=== PATIENT | male | born 1980 | race Caucasian/White ===

== ENCOUNTER 2025-05-28 11:13 | Emergency (ER) | payer BC ==
[2025-05-28 11:26] VITALS: PULSE 67; TEMP 97.4
--- NOTE | 2025-05-28 11:56 | ERPHSYRPT ---
- History of Present Illness Time Seen by Provider: 05/28/25 11:15 Source: patient Patient Subjective Stated Complaint: pt was playing softball yesterday and landed on his right shoulder and his arm was extended and now has swelling and pain Triage Nursing Assessment: Pt brought self to the ER, hyeprtensive, rates pain as 6/10 upon movement of right shoulder, swollen, pulses normal, skin n/w/d, no prior surgeries on the right shoulder/arm, denies any other injuries Physician History: This is a 45-year-old [id number]-rixcvscs male was playing baseball yesterday ran into second base was knocked off onto his right arm elbow causing immediate pain to the right shoulder. He has been trying to wean since last night. Unable to lift his arm passively degrees passively with the head or neck injury. Allergies/Adverse Reactions: Penicillins Allergy (Verified 05/28/25 11:26) Home Medications: Aspirin 81 mg PO DAILY 05/28/25 [History] Metoprolol Succinate 25 mg Xl* [Toprol-Xl 25MG Tablets] 25 mg PO DAILY 05/28/25 [History] Rosuvastatin Calcium 5 mg PO DAILY 05/28/25 [History] Tamsulosin HCl [Flomax] 0.4 mg PO DAILY 05/28/25 [History] Hx Influenza Vaccination/Date Given: No Hx Pneumococcal Vaccination/Date Given: No Travel Risk - International Travel Have you traveled outside of the country in past 3 weeks: No - Emerging Infectious Disease Are you exhibiting symptoms associated with any current EIDs: No - Review of Systems All Other Systems: Reviewed and Negative (See HPI) - Past Medical History Pertinent Past Medical History: Yes Cardiac History: High Cholesterol, Hypertension, Other Male Reproductive Disorders: Prostate Cancer - Past Surgical History Past Surgical History: Yes Cardiac: Other Male Surgical History: Vasectomy - Social History Smoking Status: Never smoker Exposure to second hand smoke: No Drug Use: none - Social Determinants of Health Will the patient participate in the screening: Yes Do you worry about a steady place to live?: No Do you have any problems with any of the following?: No known problems In the past 12 months,have you had to go without utilities?: No Transportation Issues: No Has anyone in your support network made you feel unsafe?: No Have you or anyone in your house had to go w/o enough food: No - Nursing Vital Signs Nursing Vital Signs: Initial Vital Signs Temperature 97.4 F 05/28/25 11:19 Pulse Rate 67 05/28/25 11:19 Blood Pressure 156/101 05/28/25 11:19 O2 Sat by Pulse Oximetry 98 05/28/25 11:19 Pain Scale Pain Intensity 6 - Physical Exam SpO2: 98 Comments: 05/28/25 12:01 General: Well-nourished well-developed. No apparent distress. HEENT: Normocephalic atraumatic no obvious facial or neck deformity or injury. CV: RRR NL Perfusion. No edema Resp: No Respiratory distress or adventitious breath sounds Abd: ND SNT MSK: No deformity . Pain in proximal humerus and unable to range shoulder past about 80 degrees. Can only move proxy 3 degrees daily. No pain denies clavicle or scapular region until he tries to lift his arm. 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 Less than 2- second capillary refill. Neuro: Alert and [place] x4. No focal neurologic changes Psych: No SI, HI or grave disability Ordered Tests: Active Orders 24 hr Category Date Time Status SHOULDER Stat Exams 05/28/25 11:56 Completed - Progress Progress Note: 05/28/25 13:[address] Petr Dorsey orthopedic surgery said he can see the patient next Saturday or Saturday. He agrees with the Medrol Dosepak to see if congestion ameliorates before hand. I do not feel patient is candidate for MRI without further knowing the nature of his sternotomy and the hardware that he has from his mitral valve valve replacement in the past. Will give patient her first dose of Medrol injection in the emergency department and place him on Medrol Dosepak for outpatient. - Departure Departure Disposition: Home Clinical Impression: Impingement of right shoulder Condition: Stable Critical Care Time: No Referrals: DOCTOR,NO FAMILY [Primary Care Provider, UNKNOWN] - Follow up/PCP as directed CORAL MACIAS MD [ACTIVE STAFF, ORTHOPEDICS] - Follow up/PCP as directed Instructions: Shoulder Sprain (DC) Additional Instructions: Call Orthopedics Dr. Macias's office upon discharge to schedule follow-up ointment. He states he can see you on Saturday afternoon, Saturday or Saturday. Schedule an appointment. A Medrol Dosepak steroid will be written. You have been evaluated for an emergency medical condition. At this time, given the current history and events presented, the examination conducted and any possible testing you may have had, you have been given a presumptive diagnosis based on the current information is obtained. Your discharge diagnosis is presumptive and not necessarily definitive. Medical conditions present in various stages very often without all the symptoms or findings described in medical literature. Other symptoms, concerns or conditions may arise and your diagnoses may evolve or change and/or your condition could potentially worsen after the time of disposition or discharge. You have been given a presumptive diagnosis and your condition appears to be stable, but your medical issues can change or worsen. If there is worsening of your condition including difficulty breathing, swallowing, speaking, chest pain or pressure, intractable vomiting, worsening or changing mental status, numbness, tingling or weakness of your body or arms or legs, thoughts or plans of harming yourself or others, or any other concerns, call 911 and/or return immediately to the closest emergency department. It is important you follow-up with your doctor on the next business day. Call your doctor, or the referral provided if you do not have a doctor, when they open to schedule a follow-up appointment in the next 1 or latest 2 days. Please refer to the attached sheet. If you do not have primary care doctor, you can call the [facility] referral line at [phone]. Return immediately if your symptoms worsen or if you are unable to obtain further care. My team and I thank you for choosing the [facility] Emergency Department emergency healthcare needs. We wish you a speedy recovery. Very respectfully, Dr. Remigio Huerta M.D. [place] [employer] Board-certified Emergency Physician Prescriptions: Methylprednisolone Packet [Medrol Dosepack] 4 mg PO UD #30 packet
--- NOTE | 2025-05-28 12:39 | XRAY ---
CLINICAL HISTORY: Right Shoulder Pain and Limited ROM COMPARISON: No prior studies available for comparison. TECHNIQUE: X-ray images of the right shoulder were obtained in anteroposterior views. FINDINGS: Bone Structure: Bone structure is normal and aligned. No evidence of fracture or dislocation. The humeral head is properly positioned in the glenoid fossa. No osseous lesions or abnormalities identified. Joint Spaces: Glenohumeral and acromioclavicular joint spaces are normal. No evidence of joint effusion or subluxation. Soft Tissues: Soft tissues appear normal and unremarkable. No soft tissue swelling, calcifications, or foreign bodies noted. Additional Findings: Median sternotomy wires noted. IMPRESSION: No evidence of acute fracture, dislocation, or significant soft tissue abnormalities. Disclaimer: A subtle bone abnormality or fracture may not be readily apparent on X-rays, thus clinical correlation and further imaging including follow-up CT, MRI, or follow-up X-rays are advised as needed. Electronically Signed by: Brett Goodwin MD. (05/28/2025 12:37:31 EDT)
[2025-05-28 13:02] VITALS: BP 136/106
[2025-05-28] MEDS ORDERED: DECADRON 10MG INJ. ONE (13:20)
[2025-05-28 13:21] VITALS: O2SAT 98
[2025-05-28] MEDS: DECADRON 10MG INJ. IM ONE (13:22)
== END 2025-05-28 13:36 | disposition home or self-care (01) ==
LOC: ED 11:13
DX: M75.41 Impingement syndrome of right shoulder (principal); M25.511 Pain in right shoulder; I10 Essential (primary) hypertension; Z79.52 Long term (current) use of systemic steroids; Z79.899 Other long term (current) drug therapy

== ENCOUNTER 2025-08-13 07:33 | Day surgery (SDC) | payer BC ==
[~2025-08-13 07:33] MED LIST: Epinephrine Preservative Free 1 MG/ML ONE
[2025-08-13] MEDS ORDERED: Epinephrine Preservative Free 1 MG/ML ONE ×2 (07:39)
[2025-08-13 07:55] VITALS: RESP 18
[2025-08-13] MEDS ORDERED: NEURONTIN ONE (07:56)
[2025-08-13] MEDS ORDERED: TYLENOL EXTRA STRENGTH 500 MG ONE (07:56)
[2025-08-13] MEDS ORDERED: CEFAZOLIN SODIUM ONE (07:56)
[2025-08-13] MEDS ORDERED: celeBREX 100 MG ONE (07:57)
[2025-08-13] MEDS ORDERED: Decadron 4 MG ONE (07:57)
[2025-08-13] MEDS ORDERED: Lactated Ringers 1,000 ML IV ONE (07:57)
[2025-08-13] MEDS: Lactated Ringers 1,000 ML IV SCH (08:01)
[2025-08-13] MEDS: Decadron 4 MG PO ONE (08:01)
[2025-08-13] MEDS: celeBREX 100 MG PO ONE (08:02)
[2025-08-13] MEDS: NEURONTIN PO ONE (08:02)
[2025-08-13] MEDS: TYLENOL EXTRA STRENGTH 500 MG PO ONE (08:02)
[2025-08-13] MEDS ORDERED: Versed 2 MG/2 ML Injection ONE (09:07)
[2025-08-13] MEDS ORDERED: propofoL IV ONE (09:12)
[2025-08-13] MEDS ORDERED: Zofran 4 MG/2 ML VIAL ONE (09:12)
[2025-08-13] MEDS ORDERED: Naropin 0.5% 30 ML VIAL ONE (09:13)
[2025-08-13 14:24] VITALS: TEMP 97.3
[2025-08-13 14:36] VITALS: O2SAT 97
[2025-08-13 14:57] VITALS: BP 128/94; PULSE 93
--- NOTE | 2025-08-16 08:10 | OP ---
SURGERY DATE/TIME: 08/13/2025 [id number] PREOPERATIVE DIAGNOSIS: Torn right rotator cuff with impingement syndrome and acromioclavicular osteoarthritis. POSTOPERATIVE DIAGNOSIS: Torn right rotator cuff with impingement syndrome and acromioclavicular osteoarthritis. PROCEDURE: Arthroscopy of the right shoulder with rotator cuff repair, subacromial decompression, Lida procedure, and incidental debridement of frayed labrum. SURGEON: Aram Cole II, DO ANESTHESIA: General with block for postoperative pain control. DESCRIPTION OF PROCEDURE AND FINDINGS: The patient was identified and informed consent was obtained. The patient was taken to the operative suite where he was placed into the supine position on the operating table. It should be noted the block was administered in the preoperative holding area. Once an appropriate level of anesthesia had been obtained, the patient was placed into the left lateral decubitus position with the right side up. Axillary roll was placed. Bony prominences were padded. The shoulder was rotated back 20 degrees and the beanbag was then inflated. The right upper extremity was then prepped and draped in the usual sterile fashion. A standard time-out was taken. The arm was placed into the Star abduction traction device with 40 degrees of lateral opening, 20 degrees of forward flexion, and 15 pounds of longitudinal traction due to the patient's size. At this point, the shoulder was marked for bony landmarks and a standard posterior portal was created. Trocar and cannula were placed into the joint. Joint was distended with the arthroscopic pump. An anterior portal was created with an 11 blade after identifying the level with an 18-gauge spinal needle. The glenohumeral joint was inspected in a systematic fashion. Biceps tendon was noted to be intact as was its anchor. Glenoid labrum was intact with just some mild fraying anteriorly and superiorly and this was incidentally debrided. Glenohumeral ligaments are noted to be intact. The subscapularis and teres were intact. Most of the infraspinatus was intact as well. The anterior fibers were a bit worn. The supraspinatus was noted to be retracted to the level of the glenoid. It was a crescent-shaped tear. The tear was rasped. It was noted to be very mobile and had good robust rotator cuff. The edges were trimmed for good bleeding edge surface. The inferior glenoid pouch was visualized and noted to have no evidence of loose bodies or synovial hypertrophy. The humeral head and glenoid fossa had no degenerative changes. Scope was placed into the bursa where the undersurface of the acromion was denuded of soft tissue and 2 bur thicknesses of acromion was removed anteriorly. This was tapered to a smooth transition posteriorly. Rotator cuff was retracted and impinging view of the acromioclavicular joint. The rotator cuff was repaired utilizing a SpeedBridge configuration with 4.75 SwiveLock anchors and FiberTape. The rotator cuff was repaired and a good repair was noted with placing the cuff back to its anatomic footplate. A nice watertight seal was noted. The acromioclavicular joint could easily be visualized and about 2 to 2.5 bur thicknesses of distal clavicle was resected with the bur. Following this, the construct was reinspected. No further pathology identified. The instrumentation was removed and the portal sites were closed with interrupted 4-0 nylon suture. Adaptics, 4 x 4s, and a standard postop arthroscopy dressing applied was applied. The patient was placed into an UltraSling, transferred to the cart, and taken to the recovery room in satisfactory condition, having tolerated the procedure well.
== END 2025-08-13 15:15 | disposition home or self-care (01) ==
LOC: SDC 07:33
PROVIDERS: ATTEND Orthopaedic Surgery
DX: M75.101 Unspecified rotator cuff tear or rupture of right shoulder, not specified as traumatic (principal); M75.41 Impingement syndrome of right shoulder; M19.011 Primary osteoarthritis, right shoulder